=== PATIENT | male | born 2000 | race Caucasian/White ===

== ENCOUNTER 2019-02-16 19:16 | Emergency (ER) | payer MEDICAID ==
[~2019-02-16] VITALS: Ht 180.3 cm; Wt 120.9 kg
[2019-02-16 19:20] VITALS: Ht 180.3 cm; Wt 120.9 kg
[2019-02-16] MEDS ORDERED: BACTRIM 400-801 TAB PO (19:41)
[2019-02-16] MEDS ORDERED: NAPROSYN500 MG PO (19:41)
[2019-02-16 19:58] VITALS: BP 144/80
== END 2019-02-16 19:59 | disposition home or self-care (01) ==
LOC: D.ER 19:16
DX: L03.312 Cellulitis of back [any part except buttock and flank] (principal)